=== PATIENT | female | born 1985 | race Hispanic/Latino ===

== ENCOUNTER 2017-12-13 05:52 | Day surgery (SDC) | payer OTHER, MEDICAID ==
[2017-12-12 11:16] VITALS: BP 102/69
[2017-12-12 11:30] LABS: BASOPHILS % (AUTO) 0.6 % (0.0-5.0); EOSINOPHILS % (AUTO) 1.2 % (0.0-8.0); HEMATOCRIT 39.9 % (36-48); MEAN CORPUSCULAR HEMOGLOBIN 31.4 pg (27.0-33.0); MEAN CORPUSCULAR VOLUME 89.5 fL (79-99); MONOCYTES % (AUTO) 4.9 % (3.0-13.0); NEUTROPHILS % (AUTO) 54.3 % (40.0-77.0); NUCLEATED RED BLOOD CELLS 0.1 % (0.0-0.19); PLATELET COUNT (AUTO) 177 K/uL (130-400); RED BLOOD CELL COUNT(AUTO) 4.46 MIL/uL (4.00-5.50); RED CELL DISTRIBUTION WIDTH 12.5 % (11.0-15.5); WHITE BLOOD COUNT (AUTO) 3.8 K/uL (4.8-10.8)
[~2017-12-13] VITALS: Ht 154.9 cm; Wt 57.6 kg
[2017-12-13] VITALS (13 sets, daily range): BP systolic 95–124; BP diastolic 42–78
[~2017-12-13 05:52] MED LIST: FERR-82 PO; PREN1CAP PO
[2017-12-13] MEDS ORDERED: LACTATED RINGERS 1000ML 1,000 ML IV ONE (05:54)
[2017-12-13] MEDS ORDERED: LIDOCAINE PF 2% 5ML ABBOJECT ONE (06:37)
[2017-12-13] MEDS ORDERED: PROPOFOL 10 MG/ML 20ML VIAL IV ONE (06:38)
[2017-12-13] MEDS ORDERED: ROCURONIUM 10MG/1ML SYR 10 MG/ML ML ONE (06:38)
[2017-12-13] MEDS ORDERED: MIDAZOLAM HCL 1 MG/ML 2ML VIAL ONE (06:38)
[2017-12-13] MEDS ORDERED: FENTANYL CITRATE PF 50 MCG/1 ML 2ML VIAL ONE ×2 (06:38→07:16)
[2017-12-13] MEDS ORDERED: MEPERIDINE-PF 25 MG/ML SYG ONE (07:55)
== END 2017-12-13 09:22 | disposition home or self-care (01) ==
LOC: DAH 05:52 → SUH 05:52
PROVIDERS: ATTEND Obstetrics & Gynecology
DX: Z30.2 Encounter for sterilization (principal); Z90.49 Acquired absence of other specified parts of digestive tract; Z80.42 Family history of malignant neoplasm of prostate; Z79.899 Other long term (current) drug therapy
CPT/HCPCS: 36415; 58661; 84702; 85025; 86850; 86900; 86901; A4215; A4351; A4452; A4510; A4600; A4606; C1769 ×2; J2001; J2175; J2250; J2704; J3010 ×2; J7120